=== PATIENT | male | born 1940 | race Caucasian/White ===

== ENCOUNTER 2018-04-02 06:52 | Outpatient (CLI) | payer MEDICARE, BC ==
[~2018-04-02] VITALS: Ht 165.1 cm; Wt 36.9 kg
[2018-04-02] MEDS ORDERED: GLUCOPHAGE1000 MG PO (08:30)
[2018-04-02 08:40] VITALS: BP 124/52; PULSE 71; TEMP 98.1
[2018-04-02 10:29] LABS: BASO % 0.5 % (0.0-2.0); EOS # 0.1 (0.0-0.7); EOS % 1.9 % (0-4.0); GRAN % 52.3 % (42.2-75.2); HEMOGLOBIN 12.3 g/dl (13.5-18.0); LYMPH # 2.1 (1.2-3.4); LYMPH % 36.5 % (20.0-51.0); MEAN CELL VOLUME 89 fl (80.0-100.0); MEAN CORPUSCULAR HEMOGLOBIN 31 pg (27.0-31.0); MEAN CORPUSCULAR HGB CONC 35 g/dl (33.0-37.0); MEAN PLATELET VOLUME 9.1 fl (7.4-10.4); MONO # 0.5 (0.1-0.6); MONO % 8.6 % (1.7-9.3); PLATELET COUNT 152 K/mm3 (130-400); REDCELL DISTRIBUTION WIDTH-CV 13.7 % (11.5-14.5)
[2018-04-02 10:31] VITALS: BP 121/63; PULSE 75
[2018-04-02 10:31] LABS: HEMATOCRIT 35.4 % (42.0-52.0)
== END 2018-04-02 11:06 | disposition home or self-care (01) ==
LOC: SDCO 06:52
PROVIDERS: Pathology Anatomic Pathology & Clinical Pathology
DX: C90.00 Multiple myeloma not having achieved remission (principal); E11.9 Type 2 diabetes mellitus without complications; M19.90 Unspecified osteoarthritis, unspecified site; Z79.84 Long term (current) use of oral hypoglycemic drugs
CPT/HCPCS: J2704; J7120

== ENCOUNTER → 2019-07-09 | Outpatient (CLI) | payer MEDICARE, BC ==
[~2019-07-09] MED LIST: GLUCOPHAGE1000 MG PO
== END ==
LOC: COL.VAS 11:03
DX: Z13.6 Encounter for screening for cardiovascular disorders (principal); M79.604 Pain in right leg

== ENCOUNTER 2019-08-26 06:44 | Day surgery (SDC) | payer MEDICARE, BC ==
[2019-08-26] VITALS (8 sets, daily range): BP systolic 92–119; BP diastolic 55–101; PULSE 60–70
[~2019-08-26] VITALS: Ht 177.8 cm; Wt 78.0 kg
[2019-08-26] MEDS ORDERED: REVLIMID5 MG PO (07:03)
[2019-08-26] MEDS ORDERED: ASPI325T6 PO (07:04)
[2019-08-26 08:03] LABS: HEMATOCRIT 41.7 % (42.0-52.0); HEMOGLOBIN 14.3 g/dl (13.5-18.0); MEAN CELL VOLUME 90 fl (80.0-100.0); MEAN CORPUSCULAR HEMOGLOBIN 31 pg (27.0-31.0); MEAN CORPUSCULAR HGB CONC 34 g/dl (33.0-37.0); MEAN PLATELET VOLUME 9.3 fl (7.4-10.4); PLATELET COUNT 117 K/mm3 (130-400); RED BLOOD COUNT 4.62 M/mm3 (4.20-5.60); REDCELL DISTRIBUTION WIDTH-CV 14.6 % (11.5-14.5)
[2019-08-26 08:14] LABS: ALBUMIN 4.1 gm/dL (3.5-5.0); BILIRUBIN,TOTAL 0.7 mg/dL (0.0-1.0); CALCIUM 9.1 mg/dL (8.4-10.2); CREATININE, serum 0.47 (0.66-1.25); POTASSIUM 4.2 mmol/L (3.4-5.0); TOTAL PROTEIN 7.2 gm/dL (6.4-8.2)
--- NOTE | 2019-08-26 09:45 | NUR ---
PT BACK FROM PROCEDURE, BS REPORT FROM [facility]. PT IS AWAKE AND ALERT, DRESSING TO LEFT ILIAC CREST IS DRY AND INTACT. PT DENIES QUESTIONS OR CONCERNS AT THIS TIME.
[2019-08-26 10:42] LABS: BAND 6 % (0-10); BASOPHIL 2 % (0-2); EOSINOPHIL 10 % (0-4); NEUTROPHILS 27 % (42.0-75.2); TOXIC GRANULATION PRESENT
[2019-08-26 10:47] LABS: LYMPHOCYTE 46 % (20.0-51.0); PLATELET ESTIMATE NORMAL (NORMAL)
--- NOTE | 2019-08-26 11:40 | NUR ---
PT is ready for departure. he has remained awake and alert without complaint of pain, no drainage noted to dressing from bone marrow biopsy, pt has been ambulatory to bathroom with steady gait, and has been able to drink fluids with no problem. discharge instructions were reviewed with patient and several times, and pt was given written dc instructions regarding post procedure site care, return precautions, moderate sedation and general dc/f/u instructions. Pt and deny any questions or concerns at his time of departure. saline lock was dc'd, cath intact, dressing applied. pt escorted to exit via wheelchair.
[2019-08-26 19:46] LABS: IMMUNOGLOBULIN A 130 mg/dL (101-645); IMMUNOGLOBULIN G 1236 mg/dL (540-1822); IMMUNOGLOBULIN M, QUANTITATIVE 27 mg/dL (22-240)
[2019-08-28 08:09] LABS: KAPPA FREE LIGHT CHAIN-SERUM 45.02 mg/L (()); KAPPA LAMBDA RATIO 2.24 ratio (()); LAMDA FREE LIGHT CHAIN SERUM 20.09 mg/L (())
[2019-09-02 15:23] LABS: A/G RATIO (PEP) 1.05 (()); BETA GLOBULINS (PEP) 0.7 g/dL (0.7-1.2)
[2019-09-03 11:11] LABS: URINE RANDOM A/G RATIO (IEP) 0.58 % (()); URINE RANDOM ALBUMIN (IEP) 37 % (()); URINE RANDOM ALPHA 1 (IEP) 7 % (()); URINE RANDOM ALPHA 2 (IEP) 12 % (()); URINE RANDOM BETA (IEP) 17 % (()); URINE RANDOM GAMMA (IEP) 28 % (()); URINE RANDOM T PROTEIN (IEP) 16 mg/dL (())
== END 2019-08-26 12:50 | disposition home or self-care (01) ==
LOC: EUO 06:44 → SDCO 07:00 → EUO 12:50
PROVIDERS: Internal Medicine
DX: C90.01 Multiple myeloma in remission (principal); Z94.84 Stem cells transplant status; D47.2 Monoclonal gammopathy; D75.1 Secondary polycythemia; Z87.891 Personal history of nicotine dependence; E11.8 Type 2 diabetes mellitus with unspecified complications; Z79.84 Long term (current) use of oral hypoglycemic drugs
CPT/HCPCS: J2405; J2704; J3010; J7030

== ENCOUNTER 2020-01-20 06:48 | Outpatient (CLI) | payer MEDICARE, BC ==
[~2020-01-20] VITALS: Ht 177.8 cm; Wt 77.6 kg
[~2020-01-20 06:48] MED LIST changes: +ASPI325T6 PO; +REVLIMID5 MG PO
[2020-01-20] MEDS ORDERED: TIMOPTIC 0.5%-15 OP (07:52)
[2020-01-20] MEDS ORDERED: XALATAN EYE DROPS OD (07:53)
[2020-01-20 07:54] VITALS: BP 107/63; PULSE 102; TEMP 98
[2020-01-20 10:00] VITALS: BP 112/65; PULSE 98; TEMP 98.5
--- NOTE | 2020-01-20 10:00 | NUR ---
TO RM 5 PER CART FROM PROCEDURE. ALERT ORIENTED X3, AMBULATED TO RECLINER. DRESSING OVER PUNCTURE SITE CLEAN DRY INTACT.
[2020-01-20 10:15] VITALS: BP 118/67; PULSE 95
--- NOTE | 2020-01-20 10:15 | NUR ---
RECEOVED GRAPE JUICE AND MUFFIN.
[2020-01-20 10:16] LABS: BASO % 0.3 % (0.0-2.0); GRAN # 1.1 (1.4-6.5); GRAN % 36.8 % (42.2-75.2); HEMOGLOBIN 11.4 g/dl (13.5-18.0); LYMPH # 1.6 (1.2-3.4); LYMPH % 50.3 % (20.0-51.0); MEAN CELL VOLUME 96 fl (80.0-100.0); MEAN CORPUSCULAR HEMOGLOBIN 33 pg (27.0-31.0); MEAN CORPUSCULAR HGB CONC 35 g/dl (33.0-37.0); MEAN PLATELET VOLUME 9.8 fl (7.4-10.4); MONO # 0.3 (0.1-0.6); MONO % 10.3 % (1.7-9.3); RED BLOOD COUNT 3.43 M/mm3 (4.20-5.60); REDCELL DISTRIBUTION WIDTH-CV 16.8 % (11.5-14.5)
[2020-01-20 10:18] LABS: HEMATOCRIT 32.8 % (42.0-52.0)
[2020-01-20 10:19] LABS: PLATELET COUNT 30 K/mm3 (130-400)
[2020-01-20 10:30] VITALS: BP 112/58; PULSE 94
--- NOTE | 2020-01-20 10:30 | NUR ---
ATE 100% AND TOLERATED WELL. PATIENT IN CONTACT WITH PER OWN CELL PHONE. NO DISTRESS NOTED AND PATIENT WATCHING TV.
[2020-01-20 10:45] VITALS: BP 109/61; PULSE 94
--- NOTE | 2020-01-20 10:45 | NUR ---
DISCONTINUED IV AND INT- CATHETER INTACT PATIENT DRESSED SELF AND AMBULATED TO BATHROOM.
--- NOTE | 2020-01-20 11:05 | NUR ---
RECEIVED DISCHARGE INSTRUCTIONS AND VERBALIZED UNDERSTANDING.
--- NOTE | 2020-01-20 11:15 | NUR ---
DISCHARGED PER BY NURSING STAFF TO [facility] AND [facility] STAFF.
== END 2020-01-20 11:44 | disposition home or self-care (01) ==
LOC: SDCO 06:48
PROVIDERS: Pathology Anatomic Pathology & Clinical Pathology
DX: C90.00 Multiple myeloma not having achieved remission (principal); D69.6 Thrombocytopenia, unspecified; E11.9 Type 2 diabetes mellitus without complications; Z79.84 Long term (current) use of oral hypoglycemic drugs; Z79.82 Long term (current) use of aspirin
CPT/HCPCS: J2704; J3010; J7030

== ENCOUNTER 2020-02-07 10:24 | Outpatient (CLI) | payer MEDICARE, BC ==
[~2020-02-07] VITALS: Ht 177.8 cm; Wt 74.0 kg
[~2020-02-07 10:24] MED LIST changes: +TIMOPTIC 0.5%-15 OP; +XALATAN EYE DROPS OD
[2020-02-07] MEDS ORDERED: VICOPROFEN 7.51 TAB PO (11:10)
[2020-02-07] MEDS ORDERED: ZOVIRAX400 MG PO (11:12)
[2020-02-07] MEDS ORDERED: DECADRON 4MG TAB4 MG PO (11:12)
[2020-02-07] MEDS ORDERED: FLEXERIL 1010 MG/TAB PO (11:16)
[2020-02-07] MEDS ORDERED: GLUCOPHAGE500 MG/TAB PO (11:19)
[2020-02-07] MEDS ORDERED: ANTI-DIARRHEAL2 MG PO (11:20)
[2020-02-07] MEDS ORDERED: ZOFRAN8 MG PO (11:20)
[2020-02-07 11:25] VITALS: BP 114/61; PULSE 102; TEMP 98.6
== END 2020-02-07 14:26 | disposition home or self-care (01) ==
LOC: EUO 10:24
DX: Z45.2 Encounter for adjustment and management of vascular access device (principal)
CPT/HCPCS: C1751